=== PATIENT | male | born 1975 | race Caucasian/White ===

== ENCOUNTER 2017-11-06 20:04 | Emergency (ER) | payer OTHER ==
[~2017-11-06] VITALS: Ht 160 cm; Wt 56.7 kg
[~2017-11-06 20:04] MED LIST: ALLEGRA-D 12 H1 EACH PO; IBUPROFEN600 MG ORAL; NKM
[2017-11-06 21:00] VITALS: BP 114/70
[2017-11-06 21:30] VITALS: BP 114/70
[2017-11-06] MEDS ORDERED: IBUPROFEN600 MG ORAL (21:30)
--- NOTE | 2017-11-06 21:38 | Emergency Room Report ---
History of Present Illness General Chief Complaint: Flu Like Symptoms Source: Patient Present Illness HPI 42-year-old male, no significant past medical history, presenting with fever runny nose cough for 3 weeks. Pt states cough is productive, with clear non bloody sputum. Denies chills sob or chest pain. + runny nose or myalgias. His kids are sick at home Patient does not smoke. Allergies: Coded Allergies: No Known Allergies (Unverified , 12/21/12) Patient History Past Medical History: see triage record Past Surgical History: none Pertinent Family History: none Reviewed Nursing Documentation: PMH: Agreed, PSxH: Agreed Nursing Documentation-PMH Past Medical History: No Stated History Review of Systems All Other Systems: negative except mentioned in HPI Physical Exam Vital Signs Date Time Temp Pulse Resp B/P (MAP) Pulse Ox O2 Delivery O2 Flow Rate FiO2 11/06/17 20:44 99.0 76 20 114/70 98 Sp02 EP Interpretation: reviewed, normal General Appearance: normal inspection, well appearing, no apparent distress, alert, GCS 15, non-toxic Head: normocephalic, atraumatic Eyes: bilateral eye normal inspection, bilateral eye PERRL, bilateral eye EOMI ENT: normal ENT inspection, normal pharynx, normal voice, moist mucus membranes Neck: normal inspection, full range of motion, supple Respiratory: normal inspection, lungs clear, normal breath sounds, no respiratory distress, no retraction, no wheezing, speaking full sentences, chest symmetrical Cardiovascular #1: normal inspection, regular rate, rhythm, no edema, normal capillary refill Cardiovascular #2: 2+ radial (R), 2+ radial (L) Gastrointestinal: normal inspection, non tender, soft, non-distended, no guarding Genitourinary: no CVA tenderness Musculoskeletal: normal inspection, back normal, normal range of motion, non- tender Neurologic: normal inspection, alert, oriented x3, responsive, motor strength/ tone normal, sensory intact, normal gait, speech normal Psychiatric: normal inspection, judgement/insight normal, memory normal Skin: normal inspection, normal color, no rash, warm/dry, well hydrated, normal turgor Medical Decision Making Diagnostic Impression: Primary Impression: Viral upper respiratory infection ER Course 42-year-old male with intermittent runny nose and cough for 3 weeks Patient appears very well DDX: Viral URI Plan: None in the emergency room ER course: Patient remains nontoxic, not in resp distress. Disposition: Patient is to be discharged home with a prescription of Motrin Strict precautions discussed with patient on when to return to the emergency room including hemoptysis, high fevers, chills, SOB, chest pain which may indicate severe illness. Patient is to follow up with their primary care doctor within 5 days. Patient agrees with plan. Please note that this Emergency Department Report was dictated using [employer] liner operator technology software, occasionally this can lead to erroneous entry secondary to interpretation by the dictation equipment Last Vital Signs Date Time Temp Pulse Resp B/P (MAP) Pulse Ox O2 Delivery O2 Flow Rate FiO2 11/06/17 20:44 99.0 76 20 114/70 98 Disposition: HOME, SELF-CARE Condition: Stable Scripts Ibuprofen* (MOTRIN*) 600 Mg Tablet 600 MG ORAL Q8H Y for For Pain, #30 TAB 0 Refills Prov: Martir Coleman M.D. 11/06/17 Patient Instructions: Upper Respiratory Infection, Adult, Graw-[id number] Martir Coleman M.D. Nov 06, 2017 21:38
== END 2017-11-06 21:30 | disposition home or self-care (01) ==
LOC: EMR 21:25
DX: J06.9 Acute upper respiratory infection, unspecified (principal); B34.9 Viral infection, unspecified
CPT/HCPCS: 99283